=== PATIENT | female | born 1950 | race American Indian/Alaskan Native ===

== ENCOUNTER 2017-09-06 19:52 | Emergency (ER) | payer MEDICARE ==
[~2017-09-06] VITALS: Ht 172.7 cm; Wt 111.6 kg
[2017-09-06 19:57] VITALS: Ht 172.7 cm; Wt 111.6 kg
[2017-09-06] MEDS ORDERED: SIMVASTATIN10 M1 (20:17)
[2017-09-06] MEDS ORDERED: TROSPIUM CHLORI20 MG (20:17)
[2017-09-06] MEDS ORDERED: HYDRALAZINE HCL25 MG (20:17)
[2017-09-06] MEDS ORDERED: LISINOPRIL10 MG (20:17)
[2017-09-06] MEDS ORDERED: EPZICOM1 TAB ×2 (20:18→20:20)
[2017-09-06] MEDS ORDERED: BONIVA150 M1 (20:18)
[2017-09-06] MEDS ORDERED: D3-50001 TAB (20:18)
[2017-09-06] MEDS ORDERED: REVLIMID10 MG (20:18)
[2017-09-06] MEDS ORDERED: CYMBALTA20 M1 (20:19)
[2017-09-06 22:09] LABS: BASOPHIL % 0.2 % (0-2); PLATELET COUNT 291 x10^3mcL (130-400)
[2017-09-06 22:10] LABS: RED CELL DISTRIBUTION WIDTH 18.7 % (11.5-14.5)
[2017-09-06 22:16] LABS: BILIRUBIN TOTAL 0.53 mg/dL (0.20-1.00); CALCIUM 9.8 mg/dL (8.5-10.1); CARBON DIOXIDE 39.1 mmol/L (21-32); CREATININE SERUM 3.9 mg/dL (0.6-1.0); MAGNESIUM 3.9 mg/dL (1.8-2.4); PHOSPHOROUS 6.6 mg/dL (2.5-4.9); POTASSIUM SERUM 4.3 mmol/L (3.5-5.1); TOTAL PROTEIN, SERUM 7.5 g/dL (6.4-8.2)
[2017-09-06 22:19] LABS: ALBUMIN 2.7 g/dL (3.4-5.0)
[2017-09-06 23:41] LABS: microscopic required? YES; urine erythrocyte TRACE (NEGATIVE)
[2017-09-07 02:34] VITALS: BP 103/50
== END 2017-09-07 02:34 | disposition short-term general hospital (02) ==
LOC: ED 19:52
PROVIDERS: Emergency Medicine
DX: R55 Syncope and collapse (principal); E86.0 Dehydration; N39.0 Urinary tract infection, site not specified; E11.65 Type 2 diabetes mellitus with hyperglycemia; E66.9 Obesity, unspecified; C85.90 Non-Hodgkin lymphoma, unspecified, unspecified site
CPT/HCPCS: J1815; J2060; J2405; J7030; J7040; Q0092